=== PATIENT | female | born 2000 | race Caucasian/White ===

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

== ENCOUNTER 2020-01-21 17:33 | Emergency (ER) | payer BC ==
[2020-01-21] MEDS ORDERED: LORazepam 1 MG Tab PO ONE (18:15)
[2020-01-21] MEDS ORDERED: Iopamidol 755 MG/ML 500 ML Multipack Bottle IVPUSH ONE (18:36)
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
[2020-01-21 19:33] VITALS: BP 115/74; PULSE 76
== END 2020-01-21 19:30 | disposition home or self-care (01) ==
LOC: MW.ED 17:33
DX: S06.0X9A Concussion with loss of consciousness of unspecified duration, initial encounter (principal); S40.012A Contusion of left shoulder, initial encounter; V89.2XXA Person injured in unspecified motor-vehicle accident, traffic, initial encounter
CPT/HCPCS: 70450; 71260; 72125; 93005; 99284; Q9967

== ENCOUNTER 2021-03-06 17:05 | Emergency (ER) | payer BC ==
[2021-03-06] MEDS ORDERED: diphenhydrAMINE 50 MG Cap PO ONE (17:20)
--- NOTE | 2021-03-06 18:45 | EDM.PDOC ---
ED HPI GENERAL MEDICAL PROBLEM - General Chief Complaint: Allergic Reaction Stated Complaint: EMS Time Seen by Provider: 03/06/21 17:14 Source of Information: Reports: Patient History Limitations: Reports: No Limitations - History of Present Illness INITIAL COMMENTS - FREE TEXT/NARRATIVE: HISTORY AND PHYSICAL: History of present illness: Patient is a 20-year-old female, with a history of bipolar disorder on risperidone, presents emergency room today from the [address] [place] [address] via EMS with concern of adverse reaction to IM risperidone injection. Patient has been on IM risperidone for quite some time and has received multiple doses of this in the past. According to mother, they were in the process of possibly readjusting doses. Patient states she went in to get the injection today and as she was walking out she began to feel itchy and dizzy so went back in and they called EMS. Patient states at this time, she feels itchy and anxious. Denies any mouth or oropharyngeal edema. Denies any hives. Patient denies fever, chills, chest pain, shortness of breath, or cough. Denies headache, neck stiff ness, change in vision, syncope, or near syncope. Denies nausea, vomiting, abdominal pain, diarrhea, constipation, or dysuria. Has not noted any blood in urine or stool. Patient has been eating and drinking appropriately. Review of systems: As per history of present illness and below otherwise all systems reviewed and negative. Past medical history: As per history of present illness and as reviewed below otherwise noncontributory. Surgical history: As per history of present illness and as reviewed below otherwise noncontributory. Social history: See social history for further information Family history: As per history of present illness and as reviewed below otherwise noncontributory. Physical exam: General: Patient is alert, oriented, and in no acute distress. Patient sitting comfortably on exam table. Patient is anxious appearing and tremulous on exam. Otherwise, vitally stable and reviewed by me. HEENT: No lip edema, tongue edema, or oropharyngeal edema. No stridor. Atraumatic, normocephalic, pupils equal and reactive bilaterally, negative for conjunctival pallor or scleral icterus, mucous membranes moist, throat clear, neck supple, nontender, trachea midline. No drooling or trismus noted. No meningeal signs. No hot potato voice noted. Lungs: Clear to auscultation, breath sounds equal bilaterally, chest nontender. Heart: S1S2, regular rate and rhythm without overt murmur Abdomen: Soft, nondistended, nontender. Negative for masses or hepatosplenomegaly. Negative for costovertebral tenderness. Pelvis: Stable nontender. Genitourinary: Deferred. Rectal: Deferred. Skin: Intact, warm, dry. No lesions or rashes noted. Extremities: Atraumatic, negative for cords or calf pain. Neurovascular unremarkable. Neuro: Awake, alert, oriented. Cranial nerves II through XII unremarkable. Cerebellum unremarkable. Motor and sensory unremarkable throughout. Exam nonfocal. Notes: Patient is a 20-year-old female presents emergency room today via EMS with concern of adverse reaction to an IM injection to risperidone. On arrival to the ED, patient is anxious and shaking on exam, otherwise vitally stable and well-appearing on exam. No lip edema, tongue edema, or oropharyngeal edema. No stridor. Patient is declining any IV access at this time as she has significant fear of needles. Will provide dose of Benadryl and reassess patient. After Benadryl was given, patient has complete resolution of her symptoms today in the ED. She is more comfortable and no longer anxious on exam. Remains vitally stable. Does not develop any lip edema, tongue edema, oropharyngeal or stridor. Strict return precautions thoroughly discussed with patient. Discussed importance for close follow-up with her psychiatrist for further medication management and recommendation and her primary care provider. Voices understanding and is agreeable to plan of care. Denies any further questions or concerns at this time. Diagnostics: None Therapeutics: Benadryl Prescription: None Impression: Adverse reaction to injection Plan: 1. Make sure to discuss the injection of your medication with your psychiatrist and for further management discussion. 2. Follow-up with a primary care provider and your psychiatrist as discussed. Return to the ED as needed and as discussed. Definitive disposition and diagnosis as appropriate pending reevaluation and review of above. - Related Data Allergies Allergy/AdvReac Type Severity Reaction Status Date / Time carbamazepine [From Tegretol] Allergy hives and Verified 03/06/21 17:07 swelling Sulfa (Sulfonamide Allergy Hives,swell Verified 03/06/21 17:07 Antibiotics) ing Home Meds: Home Meds Acetaminophen [Acetaminophen Extra Strength] 500 - 1,000 mg PO Q6H PRN #30 tablet 06/20/20 [Rx] Ondansetron [Zofran] 4 mg PO Q8H PRN #15 tab 11/13/19 [Rx] Paliperidone Palmitate [Invega Sustenna] 136 mg INJECT ASDIRECTED 11/13/19 [History] hydrOXYzine pamoate [Vistaril] 50 mg PO ASDIRECTED 11/13/19 [History] risperiDONE [Risperidone] 03/06/21 [History] Past Medical History HEENT History: Reports: None Cardiovascular History: Reports: None Respiratory History: Reports: Asthma Gastrointestinal History: Reports: None Genitourinary History: Reports: None 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 Musculoskeletal History: Reports: None Neurological History: Reports: None Psychiatric History: Reports: Bipolar, Depression, Psych Hospitalization(s) Endocrine/Metabolic History: Reports: None Hematologic History: Reports: None Immunologic History: Reports: None Oncologic (Cancer) History: Reports: None Dermatologic History: Reports: None - Infectious Disease History Infectious Disease History: Reports: None - Past Surgical History Head Surgeries/Procedures: Reports: None HEENT Surgical History: Reports: Myringotomy w Tube(s) Cardiovascular Surgical History: Reports: None Respiratory Surgical History: Reports: None GI Surgical History: Reports: None Female Surgical History: Reports: None Endocrine Surgical History: Reports: None Neurological Surgical History: Reports: None Musculoskeletal Surgical History: Reports: None Oncologic Surgical History: Reports: None Dermatological Surgical History: Reports: None Social & Family History - Family History Family Medical History: No Pertinent Family History - Tobacco Use Tobacco Use Status *Q: Never Tobacco User - Caffeine Use Caffeine Use: Reports: None - Recreational Drug Use Recreational Drug Use: No ED ROS ALLERGIC REACTION - Review of Systems Review Of Systems: Comprehensive ROS is negative, except as noted in HPI. ED EXAM GENERAL NO PERIP PULSE - Physical Exam Exam: See Below (See dictation) Course - Vital Signs Last Recorded V/S: Last Vital Signs Temp 96.9 F 03/06/21 17:08 Pulse 108 H 03/06/21 19:02 Resp 16 03/06/21 19:02 BP 107/60 03/06/21 19:02 Pulse Ox 98 03/06/21 19:02 - Orders/Labs/Meds Meds: Medications Discontinued Medications Generic Name Dose Route Start Last Admin Trade Name Freq PRN Reason Stop Dose Admin Diphenhydramine HCl 50 mg 03/06/21 17:20 03/06/21 17:43 Diphenhydramine 50 Mg Cap PO 03/06/21 17:21 50 mg ONETIME ONE Administration Departure - Departure Time of Disposition: 18:42 Disposition: Home, Self-Care 01 Clinical Impression: Adverse reaction to antidepressant drug Qualifiers: Encounter type: initial encounter Qualified Code(s): T43.205A - Adverse effect of unspecified antidepressants, initial encounter - Discharge Information Instructions: Drug Allergy, [id number] Referrals: Armando Cardona MD [Primary Care Provider] - Forms: ED Department Discharge Additional Instructions: The following information is given to patients seen in the emergency department who are being discharged to home. This information is to outline your options for follow-up care. We provide all patients seen in our emergency department with a follow-up referral. The need for follow-up, as well as the timing and circumstances, are variable depending upon the specifics of your emergency department visit. If you don't have a primary care physician on staff, we will provide you with a referral. We always advise you to contact your personal physician following an emergency department visit to inform them of the circumstance of the visit and for follow-up with them and/or the need for any referrals to a consulting specialist. The emergency department will also refer you to a specialist when appropriate. This referral assures that you have the opportunity for follow-up care with a specialist. All of these measure are taken in an effort to provide you with optimal care, which includes your follow-up. Under all circumstances we always encourage you to contact your private physician who remains a resource for coordinating your care. When calling for follow-up care, please make the office aware that this follow-up is from your recent emergency room visit. If for any reason you are refused follow-up, please contact the [facility] Emergency Department at and asked to speak to the emergency department charge nurse. [facility] [address] [place] [id number] [address] [id number] 1. Make sure to discuss the injection of your medication with your psychiatrist and for further management discussion. 2. Follow-up with a primary care provider and your psychiatrist as discussed. Return to the ED as needed and as discussed. Sepsis Event Note (ED) - Evaluation Sepsis Screening Result: No Definite Risk - Focused Exam Vital Signs: Vital Signs Temp Pulse Resp BP Pulse Ox 03/06/21 19:02 108 H 16 107/60 98 03/06/21 17:08 96.9 F 104 H 18 113/62 99
[2021-03-06 19:03] VITALS: BP 107/60; PULSE 108
== END 2021-03-06 18:55 | disposition home or self-care (01) ==
LOC: MW.ED 17:05
DX: F31.9 Bipolar disorder, unspecified (principal); T43.595A Adverse effect of other antipsychotics and neuroleptics, initial encounter; Z88.2 Allergy status to sulfonamides; Z88.8 Allergy status to other drugs, medicaments and biological substances
CPT/HCPCS: 99284; A9270

== ENCOUNTER 2021-07-08 00:42 | Emergency (ER) | payer BC ==
[2021-07-08 00:58] VITALS: BP 114/76; PULSE 106
== END 2021-07-08 01:03 | disposition home or self-care (01) ==
LOC: MW.ED 00:42
DX: U07.1 COVID-19 (principal); J45.909 Unspecified asthma, uncomplicated; Z88.2 Allergy status to sulfonamides; Z88.5 Allergy status to narcotic agent
CPT/HCPCS: 99283

== ENCOUNTER 2021-07-16 20:33 | Emergency (ER) | payer BC ==
[2021-07-16] MEDS ORDERED: Benzonatate 100 MG Cap PO ONE (21:09)
[2021-07-16 23:06] VITALS: BP 110/70; PULSE 78
== END 2021-07-16 21:20 | disposition home or self-care (01) ==
LOC: MW.ED 20:33
DX: U07.1 COVID-19 (principal); J40 Bronchitis, not specified as acute or chronic; Z88.2 Allergy status to sulfonamides; Z88.8 Allergy status to other drugs, medicaments and biological substances; Z79.899 Other long term (current) drug therapy
CPT/HCPCS: 71045; 99283; A9270

== ENCOUNTER 2021-12-19 23:19 | Emergency (ER) | payer BC ==
[2021-12-20] MEDS ORDERED: Albuterol/Ipratropium 3.0-0.5 MG/3 ML Neb Soln NEB ONE (00:04)
[2021-12-20 01:13] VITALS: BP 115/75; PULSE 75
== END 2021-12-20 00:49 | disposition home or self-care (01) ==
LOC: MW.ED 23:19
DX: J20.9 Acute bronchitis, unspecified (principal); R09.1 Pleurisy; R11.10 Vomiting, unspecified; Z88.8 Allergy status to other drugs, medicaments and biological substances; Z88.2 Allergy status to sulfonamides; Z86.16 Personal history of COVID-19
CPT/HCPCS: 71045; 71045-26; 94640; 99284; J7620-GY

== ENCOUNTER 2021-12-25 19:02 | Emergency (ER) | payer BC | END 2021-12-25 20:10 | disposition left against medical advice (07) | LOC: MW.ED 19:02 | DX: Z53.21 Procedure and treatment not carried out due to patient leaving prior to being seen by health care provider (principal) | CPT/HCPCS: 81003 ==

== ENCOUNTER 2022-06-29 17:43 | Emergency (ER) | payer BC, OTHER ==
[2022-06-29 18:36] LABS: CORONAVIRUS COVID-19 NAA NEGATIVE (NEGATIVE); INFLUENZA A NAA NEGATIVE (NEGATIVE); INFLUENZA B NAA NEGATIVE (NEGATIVE); RESPIRATORY SYNCYTIAL VIR NAA NEGATIVE (NEGATIVE)
[2022-06-29 18:49] VITALS: BP 107/74; PULSE 97
== END 2022-06-29 18:48 | disposition home or self-care (01) ==
LOC: MW.ED 17:43
DX: J01.80 Other acute sinusitis (principal); J45.909 Unspecified asthma, uncomplicated; Z88.8 Allergy status to other drugs, medicaments and biological substances; Z88.2 Allergy status to sulfonamides; Z20.822 Contact with and (suspected) exposure to COVID-19
CPT/HCPCS: 0241U; 99283

== ENCOUNTER 2023-01-01 10:24 | Emergency (ER) | payer BC ==
[2023-01-01 11:11] LABS: BASOPHILS PERCENT AUTO 0.1 % (0.0-1.5); EOSINOPHILS ABSOLUTE AUTO 0.3 K/uL (0.0-0.7); EOSINOPHILS PERCENT AUTO 2.9 % (0.0-7.0); HEMATOCRIT 42.4 % (36.0-46.0); HEMOGLOBIN 14.2 g/dL (12.0-16.0); LYMPHOCYTES ABSOLUTE AUTO 1.6 K/uL (0.6-2.4); LYMPHOCYTES PERCENT AUTO 15.8 % (16.0-40.0); MEAN CORPUSCULAR HEMOGLOBIN 28.9 pg (27.0-32.0); MEAN CORPUSCULAR HGB CONC 33.5 g/dL (31.0-37.0); MEAN CORPUSCULAR VOLUME 86.2 fL (80.0-98.0); MONOCYTES ABSOLUTE AUTO 0.7 K/uL (0.0-0.8); MONOCYTES PERCENT AUTO 6.4 % (0.0-15.0); NEUTROPHILS ABSOLUTE AUTO 7.6 K/uL (1.4-5.7); NEUTROPHILS PERCENT AUTO 74.8 % (48.0-80.0); NRBC ABSOLUTE 0 K/uL; PLATELET COUNT,PLT 336 K/uL (150-400); RED BLOOD CELL COUNT 4.92 M/uL (4.30-5.90); WHITE BLOOD CELL COUNT,WBC 10.17 K/uL (4.0-11.0)
[2023-01-01 11:27] LABS: APPEARANCE,URINE CLEAR; BILIRUBIN,URINE NEGATIVE (NEGATIVE); COLOR,URINE YELLOW; GLUCOSE,URINE NEGATIVE (NEGATIVE); KETONES,URINE NEGATIVE (NEGATIVE); LEUKOCYTE ESTERASE,URINE NEGATIVE (NEGATIVE); NITRITE,URINE NEGATIVE (NEGATIVE); OCCULT BLOOD,URINE NEGATIVE (NEGATIVE); PH,URINE 7.5 (5.0-8.0); PROTEIN,URINE NEGATIVE (NEGATIVE); UROBILINOGEN,URINE 0.2 EU/dL (<2.0)
[2023-01-01 11:33] LABS: BACTERIA,URINE RARE (NEGATIVE); EPITHELIAL CELLS,URINE FEW (NONE-FEW); RBC,URINE 0-2 (0-2/HPF); SQUAMOUS EPITHELIAL CELLS,UR FEW; WBC,URINE NONE SEEN (0-5/HPF)
[2023-01-01 11:34] LABS: AMPHETAMINES SCREEN, URINE NEGATIVE (CUTOFF=500); BARBITURATE SCREEN,URINE NEGATIVE (CUTOFF=200); BENZODIAZEPINES SCREEN,URINE NEGATIVE (CUTOFF=150); BUPRENORPHINE SCREEN,URINE NEGATIVE (CUTOFF=10); METHADONE SCREEN, URINE NEGATIVE (CUTOFF=200); METHAMPHETAMINES SCREEN, URINE NEGATIVE (CUTOFF=500); OXYCODONE SCREEN,URINE NEGATIVE (CUT0FF=100); PCP SCREEN,URINE NEGATIVE (CUTOFF=25); PROPOXYPHENE SCREEN,URINE NEGATIVE (CUTOFF=300); THC SCREEN,URINE 20 NG/ML PRESUMPTIVE POSITIVE (CUTOFF=50)
[2023-01-01 11:46] LABS: A/G RATIO 1.1 (0.9-1.6); ACETAMINOPHEN <2.0 ug/mL; ALANINE AMINOTRANSFERASE,ALT 18 IU/L (14-63); ALBUMIN 3.9 g/dL (3.4-5.0); ALKALINE PHOSPHATASE 73 U/L (46-116); ASPARTATE AMNIOTRANSFERASE,AST 18 IU/L (15-37); BILIRUBIN TOTAL 0.4 mg/dL (0.2-1.0); BLOOD UREA NITROGEN,BUN 8 mg/dL (7.0-18.0); CALCIUM 9.4 mg/dL (8.5-10.1); CARBON DIOXIDE,CO2 21.7 mmol/L (21.0-32.0); CHLORIDE,CL 107 mmol/L (98-107); CREATININE 0.7 mg/dL (0.6-1.0); EST CRCL DRUG DOSING (CG) 108.86 mL/min; ETHANOL BLOOD MEDICAL <3 mg/dL; GLUCOSE RANDOM 99 mg/dL (74-106); MAGNESIUM 1.9 mg/dL (1.8-2.4); POTASSIUM,K 4.3 mmol/L (3.5-5.1); PROTEIN TOTAL,TP 7.4 g/dL (6.4-8.2); SALICYLATE 2.7 mg/dL (0.0-20.0); SODIUM,NA 141 mmol/L (136-145); TSH ULTRASENSITIVE 1.16 uIU/mL (0.36-3.74)
[2023-01-01 11:47] LABS: ESTIMATED GFR 125 mL/min (>60)
[2023-01-01] MEDS ORDERED: Nicotine 21 MG/24 Hr Patch TRDERM ONE (12:30)
[2023-01-01 12:55] VITALS: BP 115/80; PULSE 86
== END 2023-01-01 12:50 | disposition home or self-care (01) ==
LOC: MW.ED 10:24
DX: F32.9 Major depressive disorder, single episode, unspecified (principal); J45.909 Unspecified asthma, uncomplicated; Z86.16 Personal history of COVID-19; Z20.822 Contact with and (suspected) exposure to COVID-19; Z79.899 Other long term (current) drug therapy; Z88.2 Allergy status to sulfonamides; Z88.8 Allergy status to other drugs, medicaments and biological substances
CPT/HCPCS: 36415; 80053; 80143; 80179; 80305-QW; 80307; 81001; 81025; 83735; 84443; 85025; 99284; U0002

== ENCOUNTER 2023-01-01 14:48 | Emergency (ER) | payer BC ==
[2023-01-01] MEDS ORDERED: Nicotine 14 MG/24 Hr Patch TRDERM STA (16:23)
[2023-01-01] MEDS ORDERED: hydrOXYzine HCl 25 MG Tab PO STA (16:23)
[2023-01-01 17:31] VITALS: BP 106/73; PULSE 91
== END 2023-01-01 17:50 ==
LOC: MW.ED 14:48
DX: R45.851 Suicidal ideations (principal); F32.A Depression, unspecified; J45.909 Unspecified asthma, uncomplicated; Z86.16 Personal history of COVID-19; Z88.2 Allergy status to sulfonamides; Z88.8 Allergy status to other drugs, medicaments and biological substances; Z79.899 Other long term (current) drug therapy
CPT/HCPCS: 99285; A9270

== ENCOUNTER 2023-10-02 10:21 | Emergency (ER) | payer BC ==
[2023-10-02 11:01] LABS: APPEARANCE,URINE CLEAR; BILIRUBIN,URINE NEGATIVE (NEGATIVE); COLOR,URINE YELLOW; GLUCOSE,URINE NEGATIVE (NEGATIVE); KETONES,URINE NEGATIVE (NEGATIVE); LEUKOCYTE ESTERASE,URINE NEGATIVE (NEGATIVE); NITRITE,URINE NEGATIVE (NEGATIVE); OCCULT BLOOD,URINE NEGATIVE (NEGATIVE); PROTEIN,URINE NEGATIVE (NEGATIVE); UROBILINOGEN,URINE 0.2 EU/dL (<2.0)
[2023-10-02] MEDS: Sodium Chloride 0.9% 1,000 ML IV STA (11:08)
[2023-10-02] MEDS: Ketorolac 30 MG/ML SDV IVPUSH STA (11:08)
[2023-10-02] MEDS: Sodium Chloride 0.9% 10 ML Syringe FLUSH PRN (11:09)
[2023-10-02] MEDS: Sodium Chloride 0.9% 2.5 ML Syringe FLUSH PRN (11:09)
[2023-10-02 11:11] LABS: BASOPHILS ABSOLUTE AUTO 0.02 K/uL (0.00-0.20); BASOPHILS PERCENT AUTO 0.2 % (0.0-1.0); EOSINOPHILS ABSOLUTE AUTO 0.51 K/uL (0.00-0.45); EOSINOPHILS PERCENT AUTO 5.8 % (0.0-6.0); HEMATOCRIT 39.6 % (37.0-47.0); HEMOGLOBIN 13.4 g/dL (12.0-16.0); IMMATURE GRAN ABSOLUTE AUTO 0.02 K/uL (0.00-0.05); IMMATURE GRAN PERCENT AUTO 0.2 % (0.0-0.4); LYMPHOCYTES ABSOLUTE AUTO 1.56 K/uL (1.00-4.80); LYMPHOCYTES PERCENT AUTO 17.9 % (24.0-44.0); MEAN CORPUSCULAR HEMOGLOBIN 29.8 pg (28.0-32.0); MEAN CORPUSCULAR HGB CONC 33.8 g/dL (32.0-36.0); MEAN PLATELET VOLUME 9.2 fL (9.4-12.3); MONOCYTES ABSOLUTE AUTO 0.69 K/uL (0.00-0.80); MONOCYTES PERCENT AUTO 7.9 % (0.0-8.0); NEUTROPHILS ABSOLUTE AUTO 5.92 K/uL (1.80-7.70); PLATELET COUNT,PLT 324 K/uL (150-400); WHITE BLOOD CELL COUNT,WBC 8.72 K/uL (3.9-11.3)
[2023-10-02 11:47] LABS: A/G RATIO 0.9 (0.9-1.6); ALBUMIN 3.5 g/dL (3.4-5.0); BILIRUBIN TOTAL 0.4 mg/dL (0.2-1.0); CALCIUM 8.8 mg/dL (8.5-10.1); CARBON DIOXIDE,CO2 24.8 mmol/L (21.0-32.0); CREATININE 0.8 mg/dL (0.6-1.0); EST CRCL DRUG DOSING (CG) 90.47 mL/min; POTASSIUM,K 4.1 mmol/L (3.5-5.1); PROTEIN TOTAL,TP 7.3 g/dL (6.4-8.2)
[2023-10-02] MEDS: Iopamidol 755 MG/ML 500 ML Multipack Bottle IVPUSH STA (12:48)
[2023-10-02 13:24] VITALS: BP 120/73; PULSE 87
== END 2023-10-02 13:22 | disposition home or self-care (01) ==
LOC: MW.ED 10:21
DX: N20.1 Calculus of ureter (principal); Z86.16 Personal history of COVID-19; Z79.899 Other long term (current) drug therapy; Z88.2 Allergy status to sulfonamides; Z88.8 Allergy status to other drugs, medicaments and biological substances; Z75.8 Other problems related to medical facilities and other health care
CPT/HCPCS: 36415; 74177; 80053; 81003; 83690; 84703; 85025; 96361; 96374; 99284; J1885; J3490; J7030; Q9967

== ENCOUNTER 2023-10-03 08:27 | Emergency (ER) | payer BC ==
[2023-10-03 08:40] VITALS: PULSE 76
[2023-10-03] MEDS: Ondansetron 4 MG Tab.DIS PO ONE (08:56)
[2023-10-03 09:33] VITALS: BP 114/70
== END 2023-10-03 09:32 | disposition home or self-care (01) ==
LOC: MW.ED 08:27
DX: R11.2 Nausea with vomiting, unspecified (principal); J45.909 Unspecified asthma, uncomplicated; Z88.2 Allergy status to sulfonamides; Z79.899 Other long term (current) drug therapy; Z86.16 Personal history of COVID-19; Z79.2 Long term (current) use of antibiotics; Z88.8 Allergy status to other drugs, medicaments and biological substances
CPT/HCPCS: 99283; A9270